=== PATIENT | male | born 1980 | race Caucasian/White ===

== ENCOUNTER 2017-09-12 23:27 | Emergency (ER) | payer SELFPAY ==
[~2017-09-12] VITALS: Ht 185.4 cm; Wt 81.6 kg
--- NOTE | 2017-09-12 23:38 | Emergency Room Report ---
History of Present Illness General Chief Complaint: Behavioral Complaint Source: EMS Present Illness HPI Is a 39-year-old male with unknown past medical history. He was brought in by EMS with a possible overdose/altered mental status. He was wandering and mumbling to himself at the [employer]. Patient unable to give a history. His name is from his ID. no other history can be obtained from him. There is no trauma. Allergies: Coded Allergies: No Known Allergies (Unverified , 09/13/17) Patient History Past Medical History: see triage record, old chart reviewed, unable to obtain Past Surgical History: unable to obtain Family History: unable to obtain Social History: unable to obtain Immunizations: other Reviewed Nursing Documentation: PMH: Agreed, PSxH: Agreed Nursing Documentation-PMH Past Medical History Deferred: Pt Cognitively Impaired Review of Systems All Other Systems: limited - Secondary to his condition. Physical Exam Vital Signs Date Time Temp Pulse Resp B/P (MAP) Pulse Ox O2 Delivery O2 Flow Rate FiO2 09/12/17 23:16 99.7 92 14 135/94 98 Room Air vitals normal Sp02 EP Interpretation: reviewed, normal General Appearance: alert/responsive, no apparent distress, non-toxic Head: normocephalic, atraumatic Eyes: PERRL, EOMI, other - Pupils 6 mm and reactive ENT: oropharynx normal Neck: supple/symm/no masses Respiratory: effort normal, no rhonchi, no wheezing Cardiovascular: no murmur, gallop, rub Gastrointestinal: non-tender, no mass, non-distended, no rebound/guarding, normal bowel sounds Musculoskeletal: gait & station normal Neurologic: sensory intact, motor strength/tone normal Skin: no rash, normal palpation Medical Decision Making Diagnostic Impression: Primary Impression: Drug abuse Additional Impression: Encephalopathy acute ER Course Patient presents with an altered mental status probably secondary to substance abuse. He is back to baseline now. He claimed that he was in a manic episode from his bipolar. This is not typical of the presentation. I suspect that this may be GHB or other mind altering drugs. He's not suicidal or homicidal. No criteria for 5150. Last Vital Signs Date Time Temp Pulse Resp B/P (MAP) Pulse Ox O2 Delivery O2 Flow Rate FiO2 09/12/17 23:16 99.7 92 14 135/94 98 Room Air Status: improved Disposition: HOME, SELF-CARE Condition: Stable Patient Instructions: Self-Destructive Behavior Additional Instructions: Abstain from drugs and alcohol. Followup with your DrTanya in 7 days. Return if worse. MARJORIE NEWTON M.D. Sep 12, 2017 23:38
[2017-09-13] MEDS ORDERED: MELATONIN1 M2 PO (01:26)
[2017-09-13] MEDS ORDERED: LITHIUM CARBON150 MG ORAL (01:26)
[2017-09-13 01:27] VITALS: BP 103/57
[2017-09-13 02:10] VITALS: BP 103/57
== END 2017-09-13 02:10 | disposition home or self-care (01) ==
LOC: EDBD 23:27 → EMR 23:45
DX: F19.10 Other psychoactive substance abuse, uncomplicated (principal); G93.40 Encephalopathy, unspecified; R41.82 Altered mental status, unspecified
CPT/HCPCS: 36415; 80307; 99283; G0480; 80329